=== PATIENT | female | born 1970 | race Caucasian/White ===

== ENCOUNTER 2018-01-21 07:00 | Day surgery (SDC) | payer OTHER ==
[~2018-01-21] VITALS: Ht 188 cm; Wt 86.2 kg
[~2018-01-21 07:00] MED LIST: ADDERALL 30 MG30 MG; CLONAZEPAM1 MG; KETO10TA2 PO; ORPH100T PO; TOPROL XL50 M1 PO
== END 2018-01-21 13:00 | disposition home or self-care (01) ==
LOC: CIR.AMB 07:00 → ER 11:03 → CIR.AMB 13:00 → O/R 15:53 → SEC-K 15:53 → ER 15:53 → SEC-K 17:55 → O/R 17:55 → EDSTATUS 18:00 → OB/GYN 20:09 → O/R 20:09 → OB/GYN 22:40
DX: N75.8 Other diseases of Bartholin's gland (principal); N76.4 Abscess of vulva

== ENCOUNTER → 2018-03-03 | Outpatient (CLI) | payer OTHER | END | disposition home or self-care (01) | LOC: TOM 12:53 | DX: N90.89 Other specified noninflammatory disorders of vulva and perineum (principal) ==

== ENCOUNTER → 2022-05-03 | Emergency (ER) | payer OTHER ==
[~2022-05-03] VITALS: Ht 188 cm; Wt 95.3 kg
[~2022-05-03] MED LIST changes: +CLOBAZAM2.5 MG/1 M PO; +MELOXICAM15 MG PO; +TOPROL XL25 M1 PO
== END | disposition left against medical advice (07) ==
LOC: ER 11:31
DX: S93.334A Other dislocation of right foot, initial encounter (principal); W19.XXXA Unspecified fall, initial encounter; Y93.89 Activity, other specified; Y92.89 Other specified places as the place of occurrence of the external cause; M79.604 Pain in right leg; G40.909 Epilepsy, unspecified, not intractable, without status epilepticus; Z88.6 Allergy status to analgesic agent; Z88.5 Allergy status to narcotic agent

== ENCOUNTER 2022-05-08 11:00 | Day surgery (SDC) | payer OTHER ==
[~2022-05-08] VITALS: Ht 188 cm; Wt 95.3 kg
[2022-05-09] MEDS ORDERED: AMOX1TAB5 PO (08:35)
== END 2022-05-08 22:37 | disposition home or self-care (01) ==
LOC: CIR.AMB 11:00
PROVIDERS: ATTEND Orthopaedic Surgery
DX: S93.124A Dislocation of metatarsophalangeal joint of right lesser toe(s), initial encounter (principal); Z88.6 Allergy status to analgesic agent; I10 Essential (primary) hypertension; G40.802 Other epilepsy, not intractable, without status epilepticus; Z86.73 Personal history of transient ischemic attack (TIA), and cerebral infarction without residual deficits; F31.89 Other bipolar disorder; F17.200 Nicotine dependence, unspecified, uncomplicated

== ENCOUNTER 2022-05-23 09:25 | Outpatient (CLI) | payer OTHER ==
[~2022-05-23 09:25] MED LIST changes: +AMOX1TAB5 PO
== END 2022-05-23 09:39 | disposition home or self-care (01) ==
LOC: RAD 09:25
PROVIDERS: ATTEND Orthopaedic Surgery
DX: S49.91XA Unspecified injury of right shoulder and upper arm, initial encounter (principal); S93.104A Unspecified dislocation of right toe(s), initial encounter; W18.30XA Fall on same level, unspecified, initial encounter; Y99.9 Unspecified external cause status; Y93.9 Activity, unspecified; Y92.9 Unspecified place or not applicable

== ENCOUNTER 2022-08-12 14:05 | Emergency (ER) | payer OTHER ==
[~2022-08-12] VITALS: Ht 188 cm; Wt 97.5 kg
[2022-08-12] MEDS ORDERED: HEMATRON AF PO (20:05)
== END 2022-08-12 20:19 ==
LOC: ER 14:05
DX: N93.9 Abnormal uterine and vaginal bleeding, unspecified (principal); W19.XXXA Unspecified fall, initial encounter; R55 Syncope and collapse; Z88.6 Allergy status to analgesic agent; Z88.5 Allergy status to narcotic agent

== ENCOUNTER 2022-11-23 12:58 | Day surgery (SDC) | payer OTHER ==
[~2022-11-23 12:58] MED LIST changes: +HEMATRON AF PO
== END 2022-11-23 20:20 | disposition home or self-care (01) ==
LOC: CIR.AMB 12:58
PROVIDERS: ATTEND Obstetrics & Gynecology Maternal & Fetal Medicine
DX: N75.1 Abscess of Bartholin's gland (principal); I10 Essential (primary) hypertension; F17.210 Nicotine dependence, cigarettes, uncomplicated; Z20.822 Contact with and (suspected) exposure to COVID-19; Z88.6 Allergy status to analgesic agent